=== PATIENT | male | born 2005 | race Caucasian/White ===

== ENCOUNTER 2025-05-04 08:38 | Emergency (ER) | payer SELFPAY ==
[2025-05-04 08:43] VITALS: BP 117/62; PULSE 70; TEMP 36.7; O2SAT 100; BMI 17.6
--- NOTE | 2025-05-04 08:58 | XR_ITS ---
[facility] [place] [id number] Patient Name: KAITY CARRILLO MRN: [id number] date: 2005 Sex: M Assigned Patient Location: ED.MAIN Current Patient Location: ED.MAIN Accession/Order Number: [id number] Exam Date: 05/04/2025 09:10 Report Date: 05/04/2025 09:23 At the request of: MIGUEL ANGEL CARBALLO DO Procedure: XR knee LT 3V LEFT KNEE - 3 views COMPARISON: None CLINICAL DATA: Patient hit left knee on a metal bed frame last night. Medial pain. AP, lateral and internal oblique views were obtained. There is no acute fracture or dislocation. No knee effusion or focal soft tissue swelling is noted. XR/XR knee LT 3V IMPRESSION: NO ACUTE BONY INJURY. Impression dictated by: Josephine Nunez M.D. 05/04/2025 9:23 AM Dictation Location: [place] [address] Electronically authenticated by: [id number] Y Date: 05/04/2025 09:23
--- NOTE | 2025-05-04 09:38 | ED_ITS ---
HPI HPI - General Adult General Chief complaint: Extremity Injury, Lower Stated complaint: L KNEE PAIN/INJURY Time Seen by Provider: 05/04/25 08:44 Source: patient Mode of arrival: Wheelchair History of Present Illness HPI narrative: Patient is a 19-year-old male presenting to the emergency department for evaluation of left knee injury. Patient states he bumped his left knee on his metal bed frame twice last night. He states that this morning, the pain has gotten worse, decided come to the ED for evaluation. Other than injury to the left knee, he has no other complaints or injuries. He is otherwise asymp tomatic. He was able to ambulate on the left lower extremity, however with a slight limp. Related Data Home Medications ?Medication ?Instructions ?Recorded ?Confirmed No Known Home Medications 05/04/2504/07 Allergies Allergy/AdvReac Type Severity Reaction Status Date / Time No Known Drug Allergies Allergy Verified 05/04/25 08:42 Opioid HPI Opioid Management Most Recent Opioid Data: Last Pain Scale 6 Today, 08:49 Review of Systems ROS Status of ROS 10 or more systems reviewed and unremark able except as noted in history and below PFSH PFSH Social History Little interest or pleasure in doing things: not at all Feeling down, depressed, or hopeless: not at all Exam Narrative Exam Narrative: CONSTITUTIONAL: Well-appearing, answering questions and following commands appropriately SKIN: Was warm and dry. EYES: Sclerae white. EARS, NOSE, THROAT: Moist oral mucosa. RESPIRATORY: Clear to auscultation bilaterally, no wheezes, crackles, or stridor, no use of accessory muscles CARDIOVASCULAR: Normal rate and regular rhythm. 2+ DP pulse on the left. Left lower extremity feels warm and well-perfused. GASTROINTESTINAL: Abdomen is nondistended. MUSCULOSKELETAL: There is tenderness to palpation to the medial aspect of the left knee joint. There is no joint effusion. He has full range of motion in the left knee. Knee is stable to ligamentous testing. Ambulates with a slightly antalgic gait. NEUROLOGIC: Patient is awake and alert. Equal strength and sensation to light touch in the bilateral lower extremities. Constitutional Vital Signs, click to edit/add: Last Vital Signs Temp 98.0 F 05/04/25 08:43 Pulse 70 05/04/25 08:43 Resp 16 05/04/25 08:43 BP 117/62 05/04/25 08:43 Pulse Ox 100 05/04/25 08:43 O2 Del Method Room Air 05/04/25 08:43 Course Vital Signs Vital signs: Vital Signs Temperature 98.0 F 05/04/25 08:43 Pulse Rate 70 05/04/25 08:43 Respiratory Rate 16 05/04/25 08:43 Blood Pressure 117/62 05/04/25 08:43 Pulse Oximetry 100 05/04/25 08:43 Oxygen Delivery Method Room Air 05/04/25 08:43 Temperature 98.0 F 05/04/25 08:43 Pulse Rate 70 05/04/25 08:43 Respiratory Rate 16 05/04/25 08:43 Blood Pressure 117/62 05/04/25 08:43 Pulse Oximetry 100 05/04/25 08:43 Oxygen Delivery Method Room Air 05/04/25 08:43 Medical Decision Making MDM Narrative Medical decision making narrative: Patient is a healthy 19-year-old male presenting to the emergency department for evaluation of a left knee injury sustained last night after bumping it on a metal bed frame. Vital signs are within normal limits. He is afebrile hemodynamically stable. Examination as noted below. The extremity is neurovascularly intact. Differential diagnosis includes knee contusion, knee sprain, and less likely underlying fracture. X-rays were obtained. He declined analgesics. X-rays of the left knee independently reviewed and interpreted by myself and radiology demonstrated no acute osseous abnormalities. I do believe the patient is stable for discharge. Patient's presentation is most likely consistent with knee contusion. They were instructed to follow up with PCP as needed. Return precautions were given including any new or worsening symptoms. Patient understands and agrees to the plan. FINAL IMPRESSION: #Acute left knee contusion DISPOSITION: Discharged home CONDITION: Good Imaging Data left knee xray: Attestation: I personally reviewed and interpreted this imaging study as follows: Radiologist's impression: ITS Impressions Knee X-Ray 05/04/25 08:58 IMPRESSION: NO ACUTE BONY INJURY. Impression dictated by: Josephine Nunez M.D. 05/04/2025 9:23 AM Dictation Location: [place] [address] Electronically authenticated by: [id number] Y Date: 05/04/2025 09:23 Discharge Plan Discharge Chief Complaint: Extremity Injury, Lower Clinical Impression: Injury of knee, left Patient Disposition: Home, Self-Care Time of Disposition Decision: 09:30 Condition: Good Mode of Transportation: Private Vehicle Prescriptions / Home Meds: No Action No Known Home Medications Print Language: Azerbaijani Instructions: Contusion in Adults (ED) Referrals: Physician,Non-Staff, MD [Primary Care Provider] - 1 week
== END 2025-05-04 09:45 | disposition home or self-care (01) ==
PROVIDERS: Emergency Provider Student in an Organized Health Care Education/Training Program
DX: S80.02XA Contusion of left knee, initial encounter (principal); W22.03XA Walked into furniture, initial encounter
CPT/HCPCS: 73562; 99283